=== PATIENT | female | born 2000 | race African-American/Black ===

== ENCOUNTER 2020-04-28 18:52 | Inpatient (IN) | payer MEDICAID ==
[~2020-04-28] VITALS: Ht 167.6 cm; Wt 69.4 kg
[2020-04-28] MEDS ORDERED: DEXT 5%/LR + PITOCIN 20UNITS/L 1,000 ML IV ONE (19:11)
[2020-04-28] MEDS ORDERED: DEXT 5%/LR + PITOCIN 20UNITS/L 1,000 ML IV SCH ×2 (20:17→20:18)
[2020-04-28] MEDS ORDERED: IBUPROFEN 400MG TABLET PO PRN (20:30)
[2020-04-28] MEDS ORDERED: MISOPROSTOL 100MCG TABLET VG SCH (20:30)
[2020-04-28] MEDS ORDERED: IBUPROFEN 800MG TABLET PO PRN (20:30)
[2020-04-28] MEDS ORDERED: METHYLERGONOVINE MALEATE 0.2 MG/ML IM PRN (20:30)
[2020-04-28] MEDS ORDERED: RHO(D) IMMUNE GLOBULIN 300 MCG/SYR IM PRN (20:30)
[2020-04-28] MEDS ORDERED: PNV1TABL50 PO (20:39)
[2020-04-28 21:00] LABS: CLARITY URINE CLEAR (CLEAR); COLOR URINE RED (YELLOW); KETONES URINE NEGATIVE (NEGATIVE); LEUKOCYTE ESTERASE URINE 1+ (NEGATIVE); NITRITE URINE NEGATIVE (NEGATIVE); OCCULT BLOOD URINE 3+ (NEGATIVE); PROTEIN URINE 1+ (NEGATIVE)
[2020-04-28 21:00] LABS: HEMATOCRIT. 29.1 % (36.0-48.0); HEMOGLOBIN. 9.7 g/dL (12.0-16.0); MEAN CORPUSCULAR HEMOGLOBIN 27.2 pg (28.0-32.0); MEAN CORPUSCULAR VOLUME 82.1 fL (81.0-99.0); MEAN PLATELET VOLUME 8.8 fl (7.4-10.4); PLATELET 237 x1000/uL (130-400); RED BLOOD CELL COUNT 3.55 mill/uL (4.2-5.4); RED CELL DISTRIBUTION WIDTH 14.8 % (11.6-14.6)
[2020-04-28 21:04] LABS: PARTIAL THROMBOPLASTIN TIME 29.7 sec (23.4-31.0); PROTHROMBIN TIME 10.8 sec (9.6-11.0)
[2020-04-28 21:13] LABS: *AMPHETAMINES SCREEN URINE NEGATIVE (NEGATIVE); *BARBITURATES SCREEN URINE NEGATIVE (NEGATIVE); *BENZODIAZEPINES SCREEN URINE NEGATIVE (NEGATIVE); *COCAINE SCREEN URINE NEGATIVE (NEGATIVE)
[2020-04-28 21:14] LABS: CANNABINOID URINE SCREEN NEGATIVE (NEGATIVE); METHADONE URINE SCREEN NEGATIVE (NEGATIVE); OPIATES URINE SCREEN NEGATIVE (NEGATIVE); PHENCYCLIDINE URINE SCREEN NEGATIVE (NEGATIVE)
[2020-04-28 21:45] LABS: HEPATITIS B SURFACE ANTIGEN NEGATIVE
[2020-04-28 21:52] LABS: PLATELET ESTIMATE NORMAL
[2020-04-28 22:55] VITALS: BP 113/57
[2020-04-28 23:25] VITALS: BP 106/62
[2020-04-28 23:55] VITALS: BP 108/60
[2020-04-29] MEDS ORDERED: DEXT 5%/LR + PITOCIN 20UNITS/L 1,000 ML IV ONE (05:24)
[2020-04-29 06:37] LABS: BASOPHILS % 0.3 % (0.0-2.0); EOSINOPHILS % 0.9 % (0.0-5.0); HEMATOCRIT. 26.6 % (36.0-48.0); HEMOGLOBIN. 8.8 g/dL (12.0-16.0); LYMPHOCYTES % 14.4 % (20.0-50.0); MEAN CORPUSCULAR HEMOGLOBIN 26.9 pg (28.0-32.0); MEAN CORPUSCULAR VOLUME 81.3 fL (81.0-99.0); MEAN PLATELET VOLUME 8.7 fl (7.4-10.4); MONOCYTES % 8.9 % (2.0-8.0); NEUTROPHILS % 75.5 % (40.0-76.0); PLATELET 218 x1000/uL (130-400); RED BLOOD CELL COUNT 3.27 mill/uL (4.2-5.4); RED CELL DISTRIBUTION WIDTH 14.6 % (11.6-14.6)
[2020-04-29 08:00] VITALS: BP 99/51
[2020-04-29 16:00] VITALS: BP 101/53
== END 2020-04-29 18:10 | disposition home or self-care (01) | DRG 560 ==
LOC: INTOOBSV 18:52 → OBSVTOIN 18:52 → 8 EST LDRP 18:52 → 8 EST A/PP 22:32
PROVIDERS: ADMIT Obstetrics & Gynecology; ATTEND Obstetrics & Gynecology
PROC: 10E0XZZ Delivery of Products of Conception, External Approach (ICD-10-PCS; principal; 2020-04-29)
DX: O42.912 Preterm premature rupture of membranes, unspecified as to length of time between rupture and onset of labor, second trimester (principal); O60.12X0 Preterm labor second trimester with preterm delivery second trimester, not applicable or unspecified; O99.52 Diseases of the respiratory system complicating childbirth; O99.344 Other mental disorders complicating childbirth; F31.9 Bipolar disorder, unspecified; J45.909 Unspecified asthma, uncomplicated; Z82.3 Family history of stroke; Z37.0 Single live birth; Z3A.26 26 weeks gestation of pregnancy; Z82.49 Family history of ischemic heart disease and other diseases of the circulatory system; Z83.3 Family history of diabetes mellitus; Z79.899 Other long term (current) drug therapy
CPT/HCPCS: 36415; 80305; 81003; 85025; 86592; 86703; 86762; 86850; 86900; 87340; 88307; J2590

== ENCOUNTER 2022-09-12 10:33 | Inpatient (IN) | payer MEDICAID ==
[~2022-09-12] VITALS: Ht 162.6 cm; Wt 78.9 kg
[~2022-09-12 10:33] MED LIST: OXYTOCIN 10 UNITS/ML 1ML ONE
[2022-09-12] MEDS ORDERED: DEXT 5%/LR + PITOCIN 20UNITS/L 1,000 ML IV SCH ×2 (10:45→11:15)
[2022-09-12] MEDS ORDERED: OXYTOCIN 30 UNITS/500ML NS PMX 500 ML IV SCH ×4 (11:00→12:45)
[2022-09-12] MEDS ORDERED: MISOPROSTOL 100MCG TABLET VG SCH (11:15)
[2022-09-12] MEDS ORDERED: METHYLERGONOVINE MALEATE 0.2 MG/ML IM PRN (11:15)
[2022-09-12] MEDS ORDERED: LIDOCAINE HCL 1% 10 MG/ML 10ML VIAL IJ SCH (11:15)
[2022-09-12] MEDS ORDERED: OXYTOCIN 10 UNITS/ML 1ML IM SCH (11:30)
[2022-09-12] MEDS ORDERED: OXYCODONE HCL/ACETAMINOPHEN 5/325MG TABLET PO PRN (12:45)
[2022-09-12] MEDS ORDERED: BENZOCAINE/LANOLIN/ALOE VERA SPRAY TOP PRN (12:45)
[2022-09-12] MEDS ORDERED: IBUPROFEN 400MG TABLET PO PRN (12:45)
[2022-09-12] MEDS ORDERED: BISACODYL 10MG SUPP PR PRN (12:45)
[2022-09-12] MEDS ORDERED: DIPHENHYDRAMINE 25MG CAPSULE PO PRN (12:45)
[2022-09-12] MEDS ORDERED: HEMORRHOIDAL SUPP PR PRN (12:45)
[2022-09-12] MEDS ORDERED: LANOLIN OINT 7GM TUBE TOP PRN (12:45)
[2022-09-12] MEDS ORDERED: RHO(D) IMMUNE GLOBULIN 300 MCG/SYR IM PRN (12:45)
[2022-09-12] MEDS ORDERED: GLYCERIN/WITCH HAZEL LEAF MEDICATED PAD TOP PRN (12:45)
[2022-09-12] MEDS ORDERED: IBUPROFEN 800MG TABLET PO PRN (12:45)
[2022-09-12 13:00] VITALS: BP 90/51
[2022-09-12] MEDS ORDERED: NALOXONE HCL 0.4MG/ML VIAL IV PRN (13:00)
[2022-09-12] MEDS: SIMETHICONE 80MG TABLET CHEW PO SCH ×3 (13:00→20:35)
[2022-09-12] MEDS ORDERED: MAGNESIUM/ALUMINUM HYDROXIDE/SIMETHICONE 30ML UDC PO SCH (13:00)
[2022-09-12 13:11] LABS: BASOPHILS % 0.2 % (0.0-2.0); EOSINOPHILS % 0.2 % (0.0-5.0); HEMATOCRIT. 28.9 % (36.0-48.0); HEMOGLOBIN. 8.9 g/dL (12.0-16.0); MEAN CORPUSCULAR VOLUME 62.1 fL (81.0-99.0); MEAN PLATELET VOLUME 9.4 fl (7.4-10.4); MONOCYTES % 5.6 % (2.0-8.0); PLATELET 399 x1000/uL (130-400); RED BLOOD CELL COUNT 4.66 mill/uL (4.2-5.4); RED CELL DISTRIBUTION WIDTH 18.4 % (11.6-14.6)
[2022-09-12 14:08] LABS: PLATELET ESTIMATE NORMAL
[2022-09-12 14:23] LABS: HEPATITIS B SURFACE ANTIGEN NEGATIVE
[2022-09-12 15:30] VITALS: BP 100/55
[2022-09-12 17:20] VITALS: BP 109/65
[2022-09-12 18:37] LABS: CLARITY URINE CLEAR (CLEAR); COLOR URINE YELLOW (YELLOW); KETONES URINE NEGATIVE (NEGATIVE); LEUKOCYTE ESTERASE URINE NEGATIVE (NEGATIVE); NITRITE URINE NEGATIVE (NEGATIVE); OCCULT BLOOD URINE TRACE (NEGATIVE); PH URINE 7.5 (4.5-8.0); PROTEIN URINE NEGATIVE (NEGATIVE); SPECIFIC GRAVITY URINE 1.011 (1.005-1.030); UROBILINOGEN URINE 0.2 E.U./dL (0.2-1.0)
[2022-09-12 18:48] LABS: *AMPHETAMINES SCREEN URINE NEGATIVE (NEGATIVE); *BARBITURATES SCREEN URINE NEGATIVE (NEGATIVE); *BENZODIAZEPINES SCREEN URINE NEGATIVE (NEGATIVE); *COCAINE SCREEN URINE NEGATIVE (NEGATIVE); CANNABINOID URINE SCREEN NEGATIVE (NEGATIVE); METHADONE URINE SCREEN NEGATIVE (NEGATIVE); OPIATES URINE SCREEN NEGATIVE (NEGATIVE); PHENCYCLIDINE URINE SCREEN NEGATIVE (NEGATIVE)
[2022-09-12 20:00] VITALS: BP 100/50
[2022-09-12] MEDS ORDERED: DOCUSATE SODIUM 100MG CAPSULE PO SCH (21:00)
[2022-09-13 02:28] VITALS: BP 100/49
[2022-09-13 06:59] LABS: BASOPHILS % 0.2 % (0.0-2.0); EOSINOPHILS % 1.4 % (0.0-5.0); HEMATOCRIT. 24.4 % (36.0-48.0); HEMOGLOBIN. 7.6 g/dL (12.0-16.0); LYMPHOCYTES % 21.2 % (20.0-50.0); MEAN CORPUSCULAR HEMOGLOBIN 19.6 pg (28.0-32.0); MEAN CORPUSCULAR VOLUME 62.7 fL (81.0-99.0); MEAN PLATELET VOLUME 9.1 fl (7.4-10.4); NEUTROPHILS % 67.2 % (40.0-76.0); PLATELET 348 x1000/uL (130-400); RED BLOOD CELL COUNT 3.89 mill/uL (4.2-5.4)
[2022-09-13] MEDS ORDERED: FERROUS SULFATE 325MG TABLET PO SCH (07:30)
[2022-09-13 08:00] VITALS: BP 100/55
[2022-09-13] MEDS ORDERED: PRENATAL VIT/FE FUMARATE/FA TABLET PO SCH (09:00)
[2022-09-13] MEDS ORDERED: IBUP-2030 MT (12:29)
== END 2022-09-13 17:45 | disposition home or self-care (01) | DRG 548 ==
LOC: 8 EST LDRP 10:33 → OBSVTOIN 10:33 → 8EST 13:02
PROVIDERS: ADMIT Obstetrics & Gynecology; ATTEND Obstetrics & Gynecology
PROC: 10D17ZZ Extraction of Products of Conception, Retained, Via Natural or Artificial Opening (ICD-10-PCS; principal; 2022-09-12)
DX: Z39.0 Encounter for care and examination of mother immediately after delivery (principal); O73.0 Retained placenta without hemorrhage
CPT/HCPCS: 36415; 80305; 81003; 85025; 86592; 86703; 86762; 86850; 86900; 87340; 99281; G0378; J2590